=== PATIENT | male | born 1975 | race Caucasian/White ===

== ENCOUNTER → 2016-12-23 | Day surgery (SDC) | payer MEDICARE, OTHER ==
[~2016-12-23] VITALS: Ht 182.9 cm; Wt 102.0 kg
[~2016-12-23] MED LIST: 0.9% Sodium Chloride 500 ML IV ONE; CALC0.257 PO; CARV25TA2 PO; CINA60TA PO; CLON1PAT15 TD; CeFAZolin 2 Gm/50 mL D5W Duplex Bag IV ONE; CeFAZolin 2 Gm/50 mL D5W IV Premix IV SCH; ERGO2000 PO; FERR-83 PO; FURO-128 PO; LABE300T PO; LIDO30CR19 TP; SEVE800T7 PO; SODI650T PO; SPIR50TA2 PO; VALS80TA25 PO
[2016-12-23 11:10] VITALS: BP 182/113; PULSE 81; RESP 14; O2SAT 97
--- NOTE | 2016-12-23 12:09 | PCM.HPANE ---
Patient Data Surgeon Admitting Provider: Attending Provider:Mela Cueva MD Primary Care Physician:Taqueria Torrez Other Provider:Megan Galvin Anesthesia Reason for Visit End Stage Renal Disease Ht/WT & BMI Height (Feet): 6 Height (Inches): 0.00 Weight (Kilograms): 102.000 Body Mass Index 30.00 Allergies Coded Allergies: mesalamine (Verified Allergy, Severe, Renal failure, 12/19/16) Past Anesthesia History Anesthesia History: Denies:: Abnormal Airway, Anesthesia Reactions, Difficult Intubation, Fam Anesthesia Reaction, Fam Malignant Hypertherm, Malignant Hyperthermia Diabetes History Hx Diabetes?: No MRSA MRSA: No Medications Hypertension Medication: Yes (Carvedilol) Reported Medications Spironolactone 50 Mg Xkvycz75 Mg PO DAILY #30 TABLET Ref 0 12/23/16 Labetalol 300 Mg Behepp301 Mg PO BID 12/23/16 Valsartan 80 Mg Thrabn96 Mg PO BID 12/19/16 Clonidine HCl (Clonidine 0.2 mg/24 hr Tdrm Patch)1 Each Patch.tdwk1 Patch TD WEEKLY 30 Days Ref 0 12/19/16 Sodium Bicarbonate 650 Mg Sbmtfd857 Mg PO TID 12/19/16 Cinacalcet HCl (Sensipar)60 Mg Ugkjoe23 Mg PO DAILY #30 TABLET Ref 0 12/19/16 Sevelamer Carbonate (Renvela)800 Mg Tablet2,400 Mg PO TID 90 Days 12/19/16 Lidocaine/Prilocaine (Lidocaine-Prilocaine Cream)30 Gm Cream..g.30 Gm TP 12/19/16 Furosemide (Lasix)40 Mg Prruat96 Mg PO BID 30 Days Ref 0 12/19/16 Ferrous Sulfate 325 Mg Cslhan813 Mg PO DAILY 30 Days Ref 0 12/19/16 Ergocalciferol (Vitamin D2) (Vitamin D2)2,000 Unit Lxquhw79,000 Unit PO WEEKLY 12/19/16 Calcitriol (Rocaltrol)0.25 Mcg Capsule0.5 Mcg PO DAILY 12/19/16 Discontinued Reported Medications Carvedilol 25 Mg Qhchfx85 Mg PO BID Ref 0 12/19/16 Sodium Bicarbonate 650 Mg Tjeidq880 Mg PO TID 12/19/16 Cinacalcet HCl (Sensipar)60 Mg Iyzlmq82 Mg PO DAILY #30 TABLET Ref 0 12/19/16 Sevelamer Carbonate (Renvela)800 Mg Obdbdk630 Mg PO TID 90 Days 12/19/16 Amlodipine (Norvasc)10 Mg Wwztfr34 Mg PO DAILY Ref 0 12/19/16 Lidocaine/Prilocaine (Lidocaine-Prilocaine Cream)30 Gm Cream..g.30 Gm TP DIRECTED PRN For Pain 12/19/16 Furosemide (Lasix)40 Mg Cqkcdn74 Mg PO BID 30 Days Ref 0 12/19/16 Ferrous Sulfate 325 Mg Gzakjl710 Mg PO BID 30 Days Ref 0 12/19/16 Ergocalciferol (Vitamin D2) (Vitamin D2)2,000 Unit Tjsvgp65,000 Unit PO WEEKLY 12/19/16 Carvedilol 25 Mg Dqqdrl33 Mg PO BID Ref 0 12/19/16 Calcitriol (Rocaltrol)0.25 Mcg Capsule0.5 Mcg PO DAILY 12/19/16 Metoprolol Tartrate 50 Mg Zpjkfy09 Mg PO BID 30 Days Ref 0 06/12/15 Cholecalciferol (Vitamin D3) (Vitamin D)1,000 Unit Gakxey692-086 Mg PO DAILY #1 BOTTLE Ref 0 05/23/14 Ferrous Sulfate (Iron)325 Mg Capsule.er325 Mg PO BID 05/23/14 Calcitriol 0.25 Mcg Capsule0.25 Mcg PO DAILY 05/23/14 History History of ENT Problems?: No HEENT History: Denies:: Abnormal Airway Cataracts Difficult Intubation Dysphagia Glaucoma Hearing Problem Sinus Problem TMJ Denture Type: None Teeth Condition: Within Normal Limits Hx of Heart Problems?: Yes Cardiovascular History: Positive for:: Hypertension Denies:: AICD Atrial Fibrillation Chest Pain Pacemaker Valvular Heart Disease Hx of Respiratory Problem?: No Respiratory History: Denies:: Asthma COPD Cough Hemoptysis Oxygen Administration Pneumonia Tuberculosis Use of C-PAP Machine Use of Inhalers / NEBS Hx Neurologic Problems?: Yes Neurological History: Positive for:: Headaches (increased B/P when lying down) Denies:: Alzheimer's Disease CVA Dementia Parkinson's Disease Seizures TIA Hx of GI Problems?: Yes Other GI Pertinent History: history of Inflamitory Bowel Disease, Chronic ulcerative colitis Hx of Problems?: Yes Genitourinary History: Positive for:: HX of Hemodialysis HX of Peritoneal Dialysis: No Male Hx: Denies:: Prostate Problems Scrotal Mass Testicular Surgery Skin History: Denies:: History Skin Disorders? Hx Musculoskeletal Problems?: No Musculoskeletal History: Denies:: Joint Replacement Hx of Psycho/Social Problems?: No Psycho Social History: Denies:: Anxiety Hx Depression Hx Surgeries?: Yes (FISTULA GRAFT, APPY, L ANKLE ) Hx Any Other Health Problems?: Yes Other History: Positive for:: Thyroid Disease (hyperparathryroid) Denies:: Cancer History Blood Transfusions: Positive for:: Accept Blood Products? Blood Transfusions Denies:: Blood Transfuse Reaction Hx Diabetes: No Hx Alcohol Use: YesHx Substance Use: No Smoking Status: Never Smoker Stop/Bang Treated for Sleep Apnea?: No Do You Have a CPAP Machine?: No S-Snoring: Do You Snore Loudly: No T-Tired: feel tired, fatigued: Yes O-Obsered: Observed not breath: No P-Blood Pressure: treated: Yes B- Body Mass Index > 35 kg/m2: No A- Age over 50: No N- Neck Large Circumference: No G- Gender Male: Yes WERO Total Score: 3 WERO Risk Assessment: Low Risk, <3 Yes Risk Assessment Category Category 1A: Patient has history of documented sleep apnea, and HAS NOT received any narcotic, sedative or anesthesia administration during this stay. Category 1B: Patient has history of documented sleep apnea, and HAS received any narcotic , sedative or anesthesia administration during this stay Category 2: Patient has SUSPECTED Obstructive Sleep Apnea, and HAS received any narcotic , sedative or anesthesia administration during this stay. Category 3: Patient has SUSPECTED Obstructive Sleep Apnea and HAS NOT received narcotic, sedative or anesthesia administration during this stay. Category 4: Outpatient in Procedural Areas with known sleep apnea or who screen positive for High Risk via the STOP/BANG questionnaire. Exam Exam Vital Signs Vital Signs Date Time Temp Pulse Resp B/P Pulse Ox O2 Delivery O2 Flow Rate FiO2 12/23/16 11:10 36.4 81 14 182/113 97 Room Air General Appearance: Oriented X3 HEENT/AIRWAY: MP 2 Lungs: Normal Air Movement Heart: Regular Rate/Rhythm Meds/Labs/Diagnostics Admission Meds Current Medications Sodium Chloride (Normal Saline) 500 ml @ ud STK-MED ONCE IV Last administered on 12/23/16t 11:14; Start 12/23/16 at 11:14; Stop 12/23/16 at 11:15; Status DC Labs Test 12/23/16 11:05 Potassium Level 4.6mEq/L (3.5-5.2) Plan Impression Patient chart reviewed, patient interviewed and anesthestic plan with risks, benefits, and alternatives discussed, and informed consent obtained. ASA Physical Status: ASA4 Life Threatening Anesthetic Plan: GA Bene/Risks/Altern/Consents: Yes HP Complete Prior to Induction: Yes Cleve Jane MD Dec 23, 2016 12:09
== END | disposition home or self-care (01) ==
LOC: SAS 10:24
PROVIDERS: ATTEND Surgery
DX: N18.6 End stage renal disease (principal); Z53.8 Procedure and treatment not carried out for other reasons
CPT/HCPCS: 36415; 84132; J7030